=== PATIENT | female | born 1945 ===

== ENCOUNTER 2025-08-13 21:30 | Inpatient (IN) | payer MEDICARE, OTHER ==
[~2025-08-13] VITALS: Ht 165.1 cm; Wt 77.6 kg
[2025-08-13 22:00] VITALS: O2SAT 96
[2025-08-13] MEDS ORDERED: BETH25TA3 PO (22:16)
[2025-08-13] MEDS ORDERED: TRAZ-182 PO (22:16)
[2025-08-13] MEDS ORDERED: MULT-1045 PO (22:16)
[2025-08-13] MEDS ORDERED: ACET160E76 PO (22:16)
[2025-08-13] MEDS ORDERED: FAMO10TA41 PO (22:16)
[2025-08-13] MEDS ORDERED: AMIN887L7 PO (22:16)
[2025-08-13] MEDS ORDERED: DOCU100C36 PO (22:16)
[2025-08-13] MEDS ORDERED: APIX5TAB PO (22:16)
[2025-08-13] MEDS ORDERED: POLY119P3 PO (22:16)
[2025-08-13] MEDS ORDERED: GABA100C PO (22:16)
[2025-08-13] MEDS ORDERED: ASCO500C18 PO (22:16)
[2025-08-13] MEDS ORDERED: CHOL10005 PO (22:16)
[2025-08-13 22:36] LABS: PLATELET COUNT (AUTO) 249 K/uL (179-408); RED BLOOD CELL COUNT(AUTO) 5.01 MIL/uL (3.63-4.92); RED CELL DISTRIBUTION WIDTH 17.7 % (12.3-17.7); WHITE BLOOD COUNT (AUTO) 17.0 K/uL (3.8-11.8)
[2025-08-13 22:44] LABS: *OCCULT BLOOD STOOL POSITIVE (NEGATIVE)
[2025-08-13 22:45] LABS: CREATININE 1.0 mg/dL (0.6-1.3); SODIUM SERUM 141 mmol/L (136-145); UREA NITROGEN, BLOOD 27 mg/dL (7-18)
[2025-08-13 22:51] LABS: ASPARTATE AMINOTRANSFERASE 22 U/L (15-37); TOTAL PROTEIN, SERUM 8.1 g/dL (6.4-8.2)
[2025-08-13] MEDS ORDERED: PIPERACILLIN/TAZOBACTAM/D5W 50 ML IV ONE (23:29)
[2025-08-13] MEDS: PIPERACILLIN SODIUM/TAZOBACTAM 3.375 G in IV DEXTROSE 5% 50 ML IV ONE (23:35)
[2025-08-14] VITALS (7 sets, daily range): BP systolic 96–126; BP diastolic 55–72; TEMP 97.6–98.4; O2SAT 94–98
[2025-08-14] MEDS ORDERED: ACETAMINOPHEN 325 MG TABLET PO PRN (01:00)
[2025-08-14] MEDS ORDERED: ENOXAPARIN SODIUM 40 MG/0.4 ML DISP.SYRIN SQ SCH (01:00)
[2025-08-14] MEDS ORDERED: Medication Not On Formulary EA (Acetaminophen 20 ML) PO PRN (01:00)
[2025-08-14] MEDS ORDERED: ALBUTEROL SULFATE 2.5 MG/3 ML NEBU NEB PRN (01:00)
[2025-08-14] MEDS ORDERED: MAGNESIUM HYDROXIDE 30 ML LIQUID UDC PO PRN (01:00)
[2025-08-14] MEDS ORDERED: IPRATROPIUM BROMIDE 0.5 MG/2.5 ML NEBU NEB PRN (01:00)
[2025-08-14] MEDS ORDERED: PIPERACILLIN/TAZOBACTAM/D5W 50 ML IV ONE (04:47)
[2025-08-14] MEDS: PIPERACILLIN SODIUM/TAZOBACTAM 3.375 G in IV DEXTROSE 5% 50 ML IV ONE (05:05)
[2025-08-14] MEDS ORDERED: PIPERACILLIN SODIUM/TAZOBACTAM 3.375 G in IV DEXTROSE 5% 50 ML IV SCH (06:00)
[2025-08-14] MEDS ORDERED: PANTOPRAZOLE SODIUM 40 MG TABLET.DR PO SCH (07:00)
[2025-08-14 07:27] LABS: PLATELET COUNT (AUTO) 222 K/uL (179-408); RED BLOOD CELL COUNT(AUTO) 4.70 MIL/uL (3.63-4.92); RED CELL DISTRIBUTION WIDTH 18.0 % (12.3-17.7); WHITE BLOOD COUNT (AUTO) 12.3 K/uL (3.8-11.8)
[2025-08-14 07:47] LABS: CREATININE 0.9 mg/dL (0.6-1.3); SODIUM SERUM 144 mmol/L (136-145); UREA NITROGEN, BLOOD 27 mg/dL (7-18)
[2025-08-14] MEDS: APIXABAN 5 MG TABLET PO SCH (08:39)
[2025-08-14] MEDS: PROTEIN SUPPLEMENT (PROSTAT) 30 ML LIQUID PO SCH (08:39)
[2025-08-14] MEDS: MULTIVITAMINS,THERAPEUTIC TABLET PO SCH (09:00)
[2025-08-14] MEDS ORDERED: AMINO ACIDS PO SCH (09:00)
[2025-08-14] MEDS ORDERED: PROTEIN HYDROLYS PO SCH (09:00)
[2025-08-14] MEDS: CHOLECALCIFEROL 1,000 UNIT TABLET PO SCH (09:00)
[2025-08-14] MEDS: BETHANECHOL CHLORIDE 25 MG TABLET PO SCH (09:00)
[2025-08-14] MEDS ORDERED: [UNRECOGNIZED DRUG - OTHER] PO SCH (09:00)
[2025-08-14] MEDS: ASCORBIC ACID 500 MG TABLET PO SCH (09:00)
[2025-08-14] MEDS: FAMOTIDINE 20 MG TABLET PO SCH (09:00)
[2025-08-14] MEDS ORDERED: DEXTROSE 5 %-0.45 % NACL 500 ML IV.SOLN IV PRN (09:15)
[2025-08-14] MEDS ORDERED: REMEDY ESSENTIAL ZINC PASTE 113 GM TOP PRN (10:45)
[2025-08-14] MEDS: IV D5 1/2 NS 1000 ML 1,000 ML IV PRN (11:06)
[2025-08-14] MEDS: REMEDY ESSENTIAL ZINC PASTE 113 GM TOP SCH (12:38)
[2025-08-14] MEDS: PIPERACILLIN SODIUM/TAZOBACTAM 3.375 G in IV DEXTROSE 5% 100 ML IV SCH (15:24)
[2025-08-14] MEDS: ONDANSETRON 4 MG/2 ML VIAL IV PRN (17:24)
[2025-08-14] MEDS: GABAPENTIN 100 MG CAPSULE PO SCH (20:39)
[2025-08-14] MEDS: TRAZODONE 50 MG TABLET PO SCH (20:39)
[2025-08-14] MEDS: DOCUSATE SODIUM 100 MG CAPSULE PO SCH (20:40)
[2025-08-15] VITALS: BP 101/51; TEMP 98.9; O2SAT 96
[2025-08-15 04:00] VITALS: BP 107/52; TEMP 98.7; O2SAT 96
[2025-08-15 07:28] LABS: PLATELET COUNT (AUTO) 195 K/uL (179-408); RED BLOOD CELL COUNT(AUTO) 4.39 MIL/uL (3.63-4.92); RED CELL DISTRIBUTION WIDTH 17.7 % (12.3-17.7); WHITE BLOOD COUNT (AUTO) 11.1 K/uL (3.8-11.8)
[2025-08-15 07:43] LABS: CREATININE 0.9 mg/dL (0.6-1.3); SODIUM SERUM 146 mmol/L (136-145); UREA NITROGEN, BLOOD 28 mg/dL (7-18)
[2025-08-15 08:00] VITALS: BP 95/57; TEMP 97.4; O2SAT 95
[2025-08-15 12:00] VITALS: BP 91/51; TEMP 98.9; O2SAT 96
[2025-08-15 16:00] VITALS: BP 115/62; TEMP 98.5; O2SAT 93
[2025-08-15 19:11] VITALS: BP 101/53; TEMP 98; O2SAT 94
[2025-08-16 00:47] VITALS: O2SAT 97
[2025-08-16 04:47] VITALS: BP 109/42; TEMP 97.4; O2SAT 95
[2025-08-16 07:23] LABS: PLATELET COUNT (AUTO) 182 K/uL (179-408); RED BLOOD CELL COUNT(AUTO) 4.12 MIL/uL (3.63-4.92); RED CELL DISTRIBUTION WIDTH 17.5 % (12.3-17.7); WHITE BLOOD COUNT (AUTO) 7.9 K/uL (3.8-11.8)
[2025-08-16 08:02] LABS: CREATININE 0.6 mg/dL (0.6-1.3); SODIUM SERUM 139 mmol/L (136-145); UREA NITROGEN, BLOOD 18 mg/dL (7-18)
[2025-08-16 11:41] VITALS: BP 122/67; TEMP 97.9; O2SAT 95
[2025-08-16 15:10] VITALS: BP 120/74; TEMP 98.7; O2SAT 96
[2025-08-16 16:25] VITALS: O2SAT 96
[2025-08-16 19:00] VITALS: BP 110/62; TEMP 98.5; O2SAT 95
[2025-08-17 02:20] VITALS: O2SAT 96
[2025-08-17 04:00] VITALS: BP 137/81; TEMP 97.7; O2SAT 95
[2025-08-17 11:31] VITALS: BP 149/77; TEMP 97.7; O2SAT 97
[2025-08-17 14:00] VITALS: O2SAT 95
[2025-08-17 16:00] VITALS: BP 142/79; TEMP 98.2; O2SAT 95
[2025-08-18 04:00] VITALS: BP 121/53; O2SAT 20; O2SAT 96
[2025-08-18 11:33] VITALS: BP 133/87; TEMP 97.8; O2SAT 96
[2025-08-18 15:47] VITALS: BP 146/92; TEMP 98.5; O2SAT 94
== END 2025-08-18 20:10 | DRG 871 ==
LOC: ER 21:50 → TELE3 08-14 00:30 → MEDSURG3 08-15 08:35
PROVIDERS: ADMIT Nurse Practitioner Family; ATTEND Student in an Organized Health Care Education/Training Program
DX: A41.9 Sepsis, unspecified organism (principal); J15.69 Pneumonia due to other Gram-negative bacteria; I31.39 Other pericardial effusion (noninflammatory); I45.3 Trifascicular block; I50.32 Chronic diastolic (congestive) heart failure; D68.59 Other primary thrombophilia; I11.0 Hypertensive heart disease with heart failure; E83.41 Hypermagnesemia; R13.10 Dysphagia, unspecified; Z79.01 Long term (current) use of anticoagulants; F03.93 Unspecified dementia, unspecified severity, with mood disturbance; Z95.828 Presence of other vascular implants and grafts; F32.A Depression, unspecified; D64.9 Anemia, unspecified; I35.0 Nonrheumatic aortic (valve) stenosis; E03.9 Hypothyroidism, unspecified; J98.11 Atelectasis; F03.94 Unspecified dementia, unspecified severity, with anxiety; I48.0 Paroxysmal atrial fibrillation; K52.9 Noninfective gastroenteritis and colitis, unspecified; K21.9 Gastro-esophageal reflux disease without esophagitis; K44.9 Diaphragmatic hernia without obstruction or gangrene; M81.0 Age-related osteoporosis without current pathological fracture; Z90.49 Acquired absence of other specified parts of digestive tract; Z87.01 Personal history of pneumonia (recurrent); Z86.718 Personal history of other venous thrombosis and embolism; M48.00 Spinal stenosis, site unspecified; I25.10 Atherosclerotic heart disease of native coronary artery without angina pectoris; E78.5 Hyperlipidemia, unspecified; M62.81 Muscle weakness (generalized); Z87.448 Personal history of other diseases of urinary system; K57.30 Diverticulosis of large intestine without perforation or abscess without bleeding; S30.817A Abrasion of anus, initial encounter; X58.XXXA Exposure to other specified factors, initial encounter; Y92.129 Unspecified place in nursing home as the place of occurrence of the external cause; K22.89 Other specified disease of esophagus; R09.02 Hypoxemia; Z88.5 Allergy status to narcotic agent; Z86.73 Personal history of transient ischemic attack (TIA), and cerebral infarction without residual deficits
CPT/HCPCS: 36415; 70450; 71045; 71250; 83605; 83690; 83735; 84100; 84484; 85025; 87040; 93307; 94760; A4606; A4663; A6213; G0378; J1956; J2405; J2543; J3490